=== PATIENT | female | born 1960 | race Caucasian/White ===

== ENCOUNTER → 2025-07-06 | Outpatient (CLI) | payer MEDICARE, OTHER | LOC: LAB 08:06 → LAB SHORT 08:06 | DX: D07.1 Carcinoma in situ of vulva (principal) | CPT/HCPCS: 88305; 88342 ==

== ENCOUNTER → 2025-07-06 | Outpatient (CLI) | payer MEDICARE, OTHER | LOC: LAB 15:13 → LAB SHORT 15:13 | PROVIDERS: Obstetrics & Gynecology | DX: Z01.419 Encounter for gynecological examination (general) (routine) without abnormal findings (principal) | CPT/HCPCS: 87624; G0145 ==

== ENCOUNTER 2025-08-20 04:05 | Emergency (ER) | payer MEDICARE, OTHER ==
[~2025-08-20] VITALS: Ht 160 cm; Wt 85.3 kg
[2025-08-20] MEDS ORDERED: CEPH500 PO (04:59)
== END 2025-08-20 05:08 | disposition home or self-care (01) ==
LOC: ER 04:05
DX: Z48.817 Encounter for surgical aftercare following surgery on the skin and subcutaneous tissue (principal)
CPT/HCPCS: 99282

== ENCOUNTER 2025-08-25 19:00 | Emergency (ER) | payer MEDICARE, OTHER ==
[~2025-08-25] VITALS: Ht 160 cm; Wt 85.3 kg
[~2025-08-25 19:00] MED LIST: CEPH500 PO
[2025-08-25] MEDS ORDERED: HYDROcodone 5-APAP 325 TAB PO ONE (20:45)
[2025-08-25 21:19] LABS: BASOPHILS ABSOLUTE AUTO 0.14 K/mm3 (0.00-0.23); BASOPHILS PERCENT AUTO 1 % (0-2); EOSINOPHILS ABSOLUTE AUTO 0.20 K/mm3 (0.00-0.68); EOSINOPHILS PERCENT AUTO 2 % (0-6); Hematocrit 41.4 % (33.0-51.0); Hemoglobin 13.0 g/dL (11.5-16.0); IMMATURE GRAN ABSOLUTE AUTO 0.11 K/mm3 (0.00-0.10); IMMATURE GRAN PERCENT AUTO 1 % (0-1); LYMPHOCYTES ABSOLUTE AUTO 4.52 K/mm3 (0.84-5.20); LYMPHOCYTES PERCENT AUTO 35 % (21-46); MONOCYTES ABSOLUTE AUTO 0.97 K/mm3 (0.16-1.47); MONOCYTES PERCENT AUTO 8 % (4-13); Mean Corpuscular HGB Conc 31.4 g/dL (31.5-36.5); Mean Corpuscular Volume 84 fL (80-100); NEUTROPHILS ABSOLUTE AUTO 6.88 K/mm3 (1.96-9.15); NEUTROPHILS PERCENT AUTO 54 % (41-73); NRBC ABSOLUTE 0.00 K/mm3 (0.00-0.02); NRBC Auto 0.0 /100 WBC (0.0-0.2); Platelet Count 202 K/mm3 (150-400); RDW Coefficient Variation 15.2 % (11.7-14.2); RDW Standard Deviation 46.2 fL (35.1-46.3)
[2025-08-25 21:45] LABS: Alanine Aminotransfer (ALT/SGP 40.0 U/L (12-78); Albumin, Blood 3.3 g/dL (3.4-5.0); Albumin/Globulin Ratio 1.2 (0.8-1.8); Anion Gap 8.0 mmol/L (3-11); Aspartate Aminotrans (AST/SGOT 21.0 U/L (12-37); Bilirubin, Total 0.2 mg/dL (0.1-1.0); Blood Urea Nitrogen 34.0 mg/dL (8-24); CO2, Blood 26.0 mmol/L (21-32); Calcium, Blood 8.9 mg/dL (8.5-10.1); Chloride, Blood 109.0 mmol/L (98-108); Creatinine, Blood 1.06 mg/dL (0.40-1.00); Globulin, Blood 2.8 g/dL (2.2-4.0); Glucose, Blood 193.0 mg/dL (70-99); Potassium, Blood 3.8 mmol/L (3.5-5.5); Sodium, Blood 139.0 mmol/L (136-145); Total Protein, Blood 6.1 g/dL (6.4-8.2)
[2025-08-25] MEDS ORDERED: NS 1,000 ML IV SCH (21:55)
[2025-08-25 22:27] LABS: Bacterial Vaginosis PCR Negative (NEGATIVE); Candida glabrata-krusei, PCR NOT DETECTED (NOT DETECT)
[2025-08-25 22:34] LABS: Candida Group, PCR DETECTED (NOT DETECT)
[2025-08-25] MEDS ORDERED: Clindamycin HC150 MG PO (22:53)
[2025-08-25] MEDS ORDERED: Diflucan150 MG PO (22:53)
== END 2025-08-25 23:04 | disposition home or self-care (01) ==
LOC: ER 19:00
PROVIDERS: Student in an Organized Health Care Education/Training Program
DX: T81.31XA Disruption of external operation (surgical) wound, not elsewhere classified, initial encounter (principal); B37.31 Acute candidiasis of vulva and vagina; D72.829 Elevated white blood cell count, unspecified; R73.9 Hyperglycemia, unspecified
CPT/HCPCS: 72193; 80053; 81515; 85025; 96360; 99284-25; A9270; J7030; Q9967

== ENCOUNTER 2025-08-27 10:33 | Emergency (ER) | payer MEDICARE, OTHER ==
[~2025-08-27] VITALS: Ht 160 cm; Wt 85.3 kg
[~2025-08-27 10:33] MED LIST changes: +Clindamycin HC150 MG PO; +Diflucan150 MG PO
[2025-08-27 11:28] LABS: BASOPHILS ABSOLUTE AUTO 0.09 K/mm3 (0.00-0.23); BASOPHILS PERCENT AUTO 1 % (0-2); EOSINOPHILS ABSOLUTE AUTO 0.15 K/mm3 (0.00-0.68); EOSINOPHILS PERCENT AUTO 1 % (0-6); Hematocrit 42.4 % (33.0-51.0); Hemoglobin 13.5 g/dL (11.5-16.0); IMMATURE GRAN ABSOLUTE AUTO 0.06 K/mm3 (0.00-0.10); IMMATURE GRAN PERCENT AUTO 1 % (0-1); LYMPHOCYTES ABSOLUTE AUTO 2.97 K/mm3 (0.84-5.20); LYMPHOCYTES PERCENT AUTO 28 % (21-46); MONOCYTES ABSOLUTE AUTO 0.51 K/mm3 (0.16-1.47); MONOCYTES PERCENT AUTO 5 % (4-13); Mean Corpuscular HGB Conc 31.8 g/dL (31.5-36.5); Mean Corpuscular Volume 85 fL (80-100); NEUTROPHILS ABSOLUTE AUTO 6.75 K/mm3 (1.96-9.15); NEUTROPHILS PERCENT AUTO 64 % (41-73); NRBC ABSOLUTE 0.00 K/mm3 (0.00-0.02); NRBC Auto 0.0 /100 WBC (0.0-0.2); Platelet Count 206 K/mm3 (150-400); RDW Coefficient Variation 15.2 % (11.7-14.2); RDW Standard Deviation 46.5 fL (35.1-46.3)
[2025-08-27 11:30] LABS: Source, Urine Clean Catch
[2025-08-27 11:42] LABS: Bilirubin, Urine Neg (Neg); Color, Urine Yellow (P-Yellow); Glucose Qualitative, Urine 4+ (Neg); Ketones, Urine Neg (Neg); Leukocyte Esterase, Urine 1+ (Neg); Protein, Urine 2+ (Neg); Specific Gravity, Urine 1.010 (1.003-1.022); Urobilinogen, Urine NORM (Normal)
[2025-08-27 11:49] LABS: Red Blood Cells, Urine 0-2 /hpf (0-2)
[2025-08-27 12:16] LABS: Alanine Aminotransfer (ALT/SGP 62.0 U/L (12-78); Albumin, Blood 3.4 g/dL (3.4-5.0); Albumin/Globulin Ratio 1.1 (0.8-1.8); Anion Gap 7.0 mmol/L (3-11); Aspartate Aminotrans (AST/SGOT 32.0 U/L (12-37); Bilirubin, Total 0.2 mg/dL (0.1-1.0); Blood Urea Nitrogen 17.0 mg/dL (8-24); CO2, Blood 24.0 mmol/L (21-32); Calcium, Blood 8.9 mg/dL (8.5-10.1); Chloride, Blood 113.0 mmol/L (98-108); Creatinine, Blood 0.82 mg/dL (0.40-1.00); Globulin, Blood 3.0 g/dL (2.2-4.0); Glucose, Blood 146.0 mg/dL (70-99); Potassium, Blood 3.6 mmol/L (3.5-5.5); Sodium, Blood 140.0 mmol/L (136-145); Total Protein, Blood 6.4 g/dL (6.4-8.2)
== END 2025-08-27 16:42 | disposition home or self-care (01) ==
LOC: ER 10:33
PROVIDERS: Emergency Medicine
DX: T38.3X1A Poisoning by insulin and oral hypoglycemic [antidiabetic] drugs, accidental (unintentional), initial encounter (principal); E11.649 Type 2 diabetes mellitus with hypoglycemia without coma
CPT/HCPCS: 71045; 80053; 81001; 82010; 82947; 85025; 87086; 93005; 93010; 96360; 96361; 99285-25